=== PATIENT | female | born 1935 ===

== ENCOUNTER 2016-07-01 08:40 | Outpatient (RCR) | payer OTHER | END 2016-07-29 | disposition home or self-care (01) | LOC: PTY 08:40 | DX: S46.812A Strain of other muscles, fascia and tendons at shoulder and upper arm level, left arm, initial encounter (principal); Z88.0 Allergy status to penicillin; Z86.59 Personal history of other mental and behavioral disorders; R03.0 Elevated blood-pressure reading, without diagnosis of hypertension; M19.90 Unspecified osteoarthritis, unspecified site; M62.48 Contracture of muscle, other site; X58.XXXA Exposure to other specified factors, initial encounter; Y93.9 Activity, unspecified; Y92.9 Unspecified place or not applicable | CPT/HCPCS: 97110; 97140; G0283 ==

== ENCOUNTER 2017-01-09 08:45 | Outpatient (RCR) | payer OTHER | END 2017-01-26 | disposition home or self-care (01) | LOC: PTY 08:45 | DX: M54.16 Radiculopathy, lumbar region (principal) | CPT/HCPCS: 97035; 97110; 97140; 97161; G0283 ==

== ENCOUNTER 2017-02-23 12:41 | Outpatient (RCR) | payer OTHER | END 2017-02-26 | disposition home or self-care (01) | LOC: PTY 12:41 | DX: M54.16 Radiculopathy, lumbar region (principal); Z88.6 Allergy status to analgesic agent; Z88.0 Allergy status to penicillin; Z88.8 Allergy status to other drugs, medicaments and biological substances; M19.90 Unspecified osteoarthritis, unspecified site | CPT/HCPCS: 97035; 97110; 97140; G0283 ==

== ENCOUNTER 2017-03-03 13:00 | Outpatient (RCR) | payer OTHER | END 2017-03-28 | disposition home or self-care (01) | LOC: PTY 13:00 | DX: M54.16 Radiculopathy, lumbar region (principal) ==